=== PATIENT | male | born 1965 | race Caucasian/White ===

== ENCOUNTER 2018-07-05 13:29 | Emergency (ER) | payer SELFPAY ==
[~2018-07-05] VITALS: Ht 170.2 cm; Wt 92.5 kg
[2018-07-05 14:20] VITALS: Ht 170.2 cm; Wt 92.5 kg
[2018-07-05 15:19] VITALS: BP 119/90
== END 2018-07-05 15:19 | disposition home or self-care (01) ==
LOC: ED 13:29
DX: K61.1 Rectal abscess (principal)